=== PATIENT | male | born 1970 | race Caucasian/White ===

== ENCOUNTER 2021-08-08 20:59 | Emergency (ER) | payer MEDICARE, OTHER ==
[2021-08-09 00:11] LABS: HEMOGLOBIN 13.6 gm/dl (14.0-17.5); RED BLOOD COUNT 4.46 M/UL (4.20-5.50); WHITE BLOOD COUNT 12.7 K/UL (4.5-11.0)
[2021-08-09 00:37] LABS: BUN/CREATININE RATIO 34 (0-10)
== END 2021-08-09 09:15 | disposition home or self-care (01) ==
LOC: ER1 20:59
PROVIDERS: Physician Assistant
DX: I87.8 Other specified disorders of veins (principal); E66.01 Morbid (severe) obesity due to excess calories; I50.9 Heart failure, unspecified; J44.9 Chronic obstructive pulmonary disease, unspecified; Z88.8 Allergy status to other drugs, medicaments and biological substances; Z99.81 Dependence on supplemental oxygen
CPT/HCPCS: 71045; 80053; 82550; 82553; 83880; 84484; 85025; 93005; 99285